=== PATIENT | female | born 1975 | race Two or more races ===

== ENCOUNTER 2025-06-28 17:11 | Emergency (ER) | payer MEDICAID, SELFPAY ==
[2025-06-28 17:24] VITALS: BP 127/84; PULSE 74; RESP 18; TEMP 37.3; O2SAT 96; BMI 33.5
--- NOTE | 2025-06-28 17:30 | PD.EDHAND ---
Upper Extremity Injury RME/HPI General Chief Complaint: Hand/Wrist Problems Stated Complaint: Left 5th digit swollen X 2 days Time Seen by Provider: 06/28/25 17:30 Arrival date/time: 06/28/25 17:11 50-year-old female with medical history significant hypothyroid without history of diabetes presents with concerns of left hand fifth digit erythema and pain. There are no other associated symptoms or aggravating factors no other modifying factors, patient denies taking medication before coming to ER today Limitations: no limitations Related Data Home Medications ?Medication ?Instructions ?Recorded ?Confirmed levothyroxine 200 mcg tablet 1 tab PO QAM 05/12/22 07/03/22 loratadine 10 mg tablet 1 tab PO QDAY 05/12/22 07/03/22 semaglutide 1 mg/dose (4 mg/3 mL) 1 mg subcut QWEEK 05/12/22 07/03/22 subcutaneous pen injector (Ozempic) albuterol sulfate 90 mcg/actuation 2 puff inhalation Q4H PRN 07/03/22 07/03/22 aerosol inhaler (ProAir HFA) Shortness Of Breath Or Wheezing clobetasol 0.05 % scalp solution See Rx Instructions .Route .COMPLEX 07/03/22 07/03/22 Previous Rx's ?Medication ?Instructions ?Recorded docusate sodium 100 mg capsule 100 mg PO BID #40 caps 07/05/22 hydrocodone 5 mg-acetaminophen 325 1 tab PO Q6H PRN pain (scale score 07/05/22 mg tablet 7-10) #20 tabs ibuprofen 600 mg tablet 600 mg PO Q8H PRN pain (scale 07/05/22 score 4-6) #15 tabs tramadol 50 mg tablet 50 mg PO Q6H PRN pain #20 tabs 01/29/23 ibuprofen 800 mg tablet 800 mg PO TID PRN pain #30 tabs 11/10/23 acetaminophen 500 mg capsule 500 mg PO Q6H PRN pain #30 caps 09/05/24 diphenhydramine HCl 25 mg capsule 25 mg PO TID PRN itching #14 caps 09/05/24 (Allergy Relief (diphenhydramine)) cephalexin 500 mg capsule 500 mg PO BID 7 days #14 caps 06/28/25 ibuprofen 600 mg tablet 600 mg PO Q6H #30 tabs 06/28/25 Allergies Allergy/AdvReac Type Severity Reaction Status Date / Time No Known Allergies Allergy Verified 06/28/25 17:16 Review of Systems Review of Systems Systems Reviewed: All systems reviewed, normal except as documented Constitutional Constitutional: Reports system reviewed and no additional complaints, except as documented, Denies fever(s) and Denies headache(s) Eyes Eyes: Reports system reviewed and no additional complaints, except as documented and Denies blurry vision ENT Ears, Nose, Mouth, and Throat: Reports system reviewed and no additional complaints, except as documented, Denies headache(s), Denies nasal congestion and Denies nasal discharge Cardiovascular Cardiovascular: Reports system reviewed and no additional complaints, except as documented, Denies chest pain and Denies dyspnea Respiratory Respiratory: Reports system reviewed and no additional complaints, except as documented, Denies chest congestion, Denies cough and Denies dyspnea Gastrointestinal Gastrointestinal: Reports system reviewed and no additional complaints, except as documented and Denies abdominal pain Integumentary/Breasts Skin/Breast: Reports system reviewed and no additional complaints, except as documented, Denies rash and Reports other (Mild erythema distal aspect of left pinky finger) Neurologic Neurologic: Reports system reviewed and no additional complaints, except as documented, Reports as per HPI and Denies headache(s) Past Medical History Past Medical History NEUROLOGIC: Negative Neurological Disorders or Seizures CARDIAC: Positive Cellulitis; Negative Cardiac Disorders, Myocardial Infarction, Cardiac Arrhythmia, Atrial Fibrillation, Angina, Heart Murmur, Coronary Artery Disease, Atherosclerotic Heart Disease, Peripheral Vascular Disease, Hypercholesterolemia, Aneurysm, Congestive Heart Failure, Congenital Heart Disease, Valvular Heart Disease, Rheumatic Fever, Cardiomyopathy, Edema, Pericarditis, Deep Vein Thrombosis, Hypertension, Hypotension or Varicose Veins RESPIRATORY: Positive Asthma; Negative Chronic Obstructive Pulmonary Disease (COPD) GASTROINTESTINAL: Positive Gastrointestinal Disorders (Diarhea for 6 months) and Obesity GENITOURINARY: Negative Genitourinary Disorders or Renal Disease REPRODUCTIVE: Negative Pelvic Inflammatory Disease MUSCULOSKELETAL: Negative Musculoskeletal Disorders ENDOCRINE: Positive Hypothyroidism; Negative Endocrine Disorders, Diabetes Mellitus Type 1, Diabetes Mellitus Type 2, Hypoglycemia, Montour's Syndrome, Partlow's Disease, Hyperthyroidism, Parathyroid Disease, Pituitary Disease, Systemic Lupus Erythematosus, Syndrome of Inappropriate Antidiuretic Hormone (SIADH), Adrenal Disease or Graves' Disease HEMATOLOGIC: Negative Blood Disorders or Sickle Cell Disease OTHER HISTORY: Negative Autoimmune Disease, Blood Transfusions, Blood Transfusion Reaction or Anesthesia Reactions Family History FAMILY HISTORY: Negative Family Neurologic Problems, Family Psychiatric Problems, Family Respiratory Disorders, Family Cardiac Disorders, Family Gastrointestinal Problems, Family Cancer, Family Surgery or Family Anesthesia Reaction Surgical History SURGICAL: Negative Pacemaker Social History SMOKING STATUS: Current every day smoker SUBSTANCE USE: does not use ED Exam General Limitations: Present no limitations General appearance: Present alert and in no apparent distress Head Head exam: Present atraumatic Eye Eye exam: Present normal appearance, PERRL and EOMI ENT ENT exam: Present normal exam, normal oropharynx and mucous membranes moist Neck Neck exam: Present normal inspection, full ROM and trachea midline Chest Chest inspection: Present normal inspection and symmetric chest wall rise Respiratory Respiratory exam: Present normal lung sounds bilaterally Cardiovascular Cardiovascular exam: Present regular rate, normal rhythm and normal heart sounds Abdominal Exam Abdominal exam: Present soft and normal bowel sounds Extremities Exam Extremities exam: Present full ROM, tenderness, normal capillary refill and joint swelling (Mild erythema, swelling distal aspect left fifth digit) Back Exam Back exam: Present normal inspection and full ROM Neurological Exam Neurological exam: Present alert, oriented X3 and CN II-XII intact Psychiatric Psychiatric exam: Present normal affect and normal mood Skin Skin exam: Present warm, dry, intact and normal color Course Quality Measures none Vital Signs Vital signs: Vital Signs Temperature 99.2 F 06/28/25 17:24 Pulse Rate 74 06/28/25 17:24 Respiratory Rate 18 06/28/25 17:24 Blood Pressure 127/84 06/28/25 17:24 Pulse Oximetry (%) 96 06/28/25 17:24 Oxygen Delivery Method Room Air 06/28/25 17:24 O2 saturation 96% on room air within normal limits Extremity Injury MDM Narrative MDM Narrative:: 50-year-old female with medical history significant hypothyroid without history of diabetes presents with concerns of left hand fifth digit erythema and pain. There are no other associated symptoms or aggravating factors no other modifying factors, patient denies taking medication before coming to ER today On exam patient has mild erythema distal aspect of the left fifth digit no significant swelling patient has full range of motion of all fingers Patient we discharged with a course of pain medication and antibiotics Patient discharged home in no distress to follow-up with primary care doctor in the next 24 to 48 hours and for any worsening symptoms to return to the ER immediately Patient data External records reviewed:: [facility] previous records Clinical information provided by:: patient Social determinants that could affect healthcare access:: none Patient has the following chronic illnesses:: None How is presenting disease/condition affected by chronic disease/condition?: no chronic disease Evaluation data The following diagnostics were reviewed and interpreted by me:: other (specify) Lab and/or radiology exams considered but not ordered:: Considered not indicated Interpretation Summary: N/A Medications / Prescriptions Medications or Prescriptions considered but not ordered:: Given Medication administrations:: Given Consultations Consultation(s) initiated? (list below): No Diagnosis Upper Extremity Injury Differential Diagnosis: other (Cellulitis, abscess) Most likely diagnosis given after review of the tests above:: Erythema finger Admission Indicated Admission indicated?: not indicated Admission Request Was there a request for admission?: No Disposition Plan Disposition Plan: Discharge Discharge Attestation Discharge Attestation: The patient and all family members were given an opportunity to ask questions and understood the discharge instructions. Discharge instructions specifically effects, indications for sooner follow up or return to the emergency department, and the expected course of current diagnosis. Patient condition: Stable Discharge Plan Plan Patient Disposition: HOME (Self Care) Discharge Disposition comment: Stable Prescriptions/Referrals Prescriptions/Med Rec: New cephalexin 500 mg capsule 500 mg PO BID 7 Days Qty: 14 0RF ibuprofen 600 mg tablet 600 mg PO Q6H Qty: 30 0RF No Action levothyroxine 200 mcg tablet 1 tab PO QAM Patient Comments: take 1 tablet by mouth IN THE MORNING ON AN EMPTY STOMACH ONCE DAILY 30 Rx Instructions: TAKE 1 TABLET BY MOUTH EVERY MORNING ON AN EMPTY STOMACH Ozempic 1 mg/dose (4 mg/3 mL) pen injector 1 mg SUBCUT QWEEK Patient Comments: inject 1 milligram subcutaneously every week Rx Instructions: 1 MG ONCE WEEK loratadine 10 mg tablet 1 tab PO QDAY Patient Comments: take 1 tablet by mouth once daily clobetasol 0.05 % solution See Rx Instructions .ROUTE .COMPLEX Patient Comments: apply topically to scalp every evening for 2 WEEKS ON 2 WEEKS OFF if needed AVOID FACE AND GROIN Rx Instructions: APPLY TOPICALLY TO SCALP EVERY EVENING FOR 2 WEEKS ON AND 2 WEEKS OFF IF NEEDED. AVOID FACE AND GROIN. albuterol sulfate [ProAir HFA] 90 mcg/actuation HFA aerosol inhaler 2 puff inhalation Q4H PRN (Reason: Shortness Of Breath Or Wheezing) docusate sodium 100 mg Capsule 100 mg PO BID Qty: 40 0RF hydrocodone-acetaminophen 5-325 mg tablet 1 tab PO Q6H MDD 4 PRN (Reason: pain (scale score 7-10)) Qty: 20 0RF ibuprofen 600 mg tablet 600 mg PO Q8H PRN (Reason: pain (scale score 4-6)) Qty: 15 0RF tramadol 50 mg tablet 50 mg PO Q6H PRN (Reason: pain) Qty: 20 0RF diphenhydramine HCl [Allergy Relief(diphenhydramin)] 25 mg capsule 25 mg PO TID PRN (Reason: itching) Qty: 14 0RF acetaminophen 500 mg capsule 500 mg PO Q6H PRN (Reason: pain) Qty: 30 0RF ibuprofen 800 mg tablet 800 mg PO TID PRN (Reason: pain) Qty: 30 0RF Problem List Clinical Impression: Hand pain, left, Erythema of finger Patient/Caregiver Discharge Instructions Education Materials: ED Erythema Additional Instructions: Please follow up with your primary care doctor in the next 24-48hrs for any worsening symptoms return here immediately Print Language: Welsh Stand Alone Forms: Jeannie Award Info., Patient Portal Info Letter PA/CANDY ROLLING MACHINE OPERATOR Supervising Physician PA/CANDY ROLLING MACHINE OPERATOR Supervising Physician: Dr. peguero
== END 2025-06-28 17:41 | disposition home or self-care (01) ==
LOC: SERX 17:44
PROVIDERS: Emergency Provider Family Medicine
DX: L53.8 Other specified erythematous conditions (principal); M79.642 Pain in left hand
CPT/HCPCS: 99281

== ENCOUNTER 2025-07-23 08:19 | Emergency (ER) | payer MEDICAID, SELFPAY ==
[2025-07-23 08:20] VITALS: BMI 31.8
[2025-07-23 08:30] VITALS: BP 118/76; PULSE 63; RESP 18; TEMP 36.5; O2SAT 97
--- NOTE | 2025-07-23 08:46 | PD.EDHAND ---
Upper Extremity Injury RME/HPI General Chief Complaint: Hand/Wrist Problems Stated Complaint: LEFT 4/5 METATARSAL SWELLING/PAIN X2 WK Time Seen by Provider: 07/23/25 08:26 Source: patient Arrival date/time: 07/23/25 08:19 50-year-old female with a history of hypothyroidism presents to the emergency room with a chief complaint of left hand tenderness and pain x 2 weeks Mode of arrival: ambulatory Limitations: no limitations Related Data Home Medications ?Medication ?Instructions ?Recorded ?Confirmed levothyroxine 200 mcg tablet 1 tab PO QAM 05/12/22 07/03/22 loratadine 10 mg tablet 1 tab PO QDAY 05/12/22 07/03/22 semaglutide 1 mg/dose (4 mg/3 mL) 1 mg subcut QWEEK 05/12/22 07/03/22 subcutaneous pen injector (Ozempic) albuterol sulfate 90 mcg/actuation 2 puff inhalation Q4H PRN 07/03/22 07/03/22 aerosol inhaler (ProAir HFA) Shortness Of Breath Or Wheezing clobetasol 0.05 % scalp solution See Rx Instructions .Route .COMPLEX 07/03/22 07/03/22 Previous Rx's ?Medication ?Instructions ?Recorded docusate sodium 100 mg capsule 100 mg PO BID #40 caps 07/05/22 hydrocodone 5 mg-acetaminophen 325 1 tab PO Q6H PRN pain (scale score 07/05/22 mg tablet 7-10) #20 tabs ibuprofen 600 mg tablet 600 mg PO Q8H PRN pain (scale 07/05/22 score 4-6) #15 tabs tramadol 50 mg tablet 50 mg PO Q6H PRN pain #20 tabs 01/29/23 ibuprofen 800 mg tablet 800 mg PO TID PRN pain #30 tabs 11/10/23 acetaminophen 500 mg capsule 500 mg PO Q6H PRN pain #30 caps 09/05/24 diphenhydramine HCl 25 mg capsule 25 mg PO TID PRN itching #14 caps 09/05/24 (Allergy Relief (diphenhydramine)) ibuprofen 600 mg tablet 600 mg PO Q6H #30 tabs 06/28/25 ibuprofen 600 mg tablet 600 mg PO Q8H PRN fever or pain 07/23/25 #20 tabs Allergies Allergy/AdvReac Type Severity Reaction Status Date / Time No Known Allergies Allergy Verified 07/23/25 08:22 Review of Systems Review of Systems Systems Reviewed: All systems reviewed, normal except as documented Constitutional Constitutional: Reports system reviewed and no additional complaints, except as documented, Denies fatigue, Denies fever(s), Denies headache(s) and Denies weakness Eyes Eyes: Reports system reviewed and no additional complaints, except as documented, Denies blurry vision and Denies change in vision ENT Ears, Nose, Mouth, and Throat: Reports system reviewed and no additional complaints, except as documented, Denies otalgia, Denies headache(s), Denies nasal congestion, Denies throat swelling and Denies vertigo Cardiovascular Cardiovascular: Reports system reviewed and no additional complaints, except as documented, Denies chest pain, Denies dyspnea and Denies dyspnea on exertion Respiratory Respiratory: Reports system reviewed and no additional complaints, except as documented, Denies chest congestion, Denies cough, Denies dyspnea, Denies dyspnea on exertion and Denies wheezing Gastrointestinal Gastrointestinal: Reports system reviewed and no additional complaints, except as documented, Denies abdominal pain, Denies cramping, Denies nausea and Denies vomiting Genitourinary Genitourinary: Reports system reviewed and no additional complaints, except as documented Musculoskeletal Musculoskeletal: Reports system reviewed and no additional complaints, except as documented, Reports arthralgias, Denies back pain, Denies joint swelling, Denies limited range of motion and Denies numbness Integumentary/Breasts Skin/Breast: Reports system reviewed and no additional complaints, except as documented, Denies erythema, Denies pruritus, Denies rash, Reports skin pain and Denies wounds Neurologic Neurologic: Reports system reviewed and no additional complaints, except as documented, Denies confusion, Denies headache(s), Denies lack of coordination, Denies numbness, Denies vertigo and Denies weakness Psychiatric Psychiatric: Reports system reviewed and no additional complaints, except as documented, Denies anxiety, Denies confusion, Denies depression, Denies paranoia, Denies suicidal ideation and Denies tactile hallucinations Endocrine Endocrine: Reports system reviewed and no additional complaints, except as documented and Denies fatigue Hematologic/Lymphatic Hematologic/Lymphatic: Reports system reviewed and no additional complaints, except as documented and Denies lymphadenopathy Allergic/Immunologic Allergic/Immunologic: Reports system reviewed and no additional complaints, except as documented, Denies throat swelling, Denies urticaria and Denies wheezing ED Exam General Limitations: Present no limitations General appearance: Present alert and in no apparent distress Head Head exam: Present atraumatic Eye Eye exam: Present normal appearance, PERRL and EOMI ENT ENT exam: Present normal exam, normal oropharynx and mucous membranes moist Neck Neck exam: Present normal inspection, full ROM and trachea midline Chest Chest inspection: Present normal inspection and symmetric chest wall rise Respiratory Respiratory exam: Present normal lung sounds bilaterally Cardiovascular Cardiovascular exam: Present regular rate, normal rhythm and normal heart sounds Abdominal Exam Abdominal exam: Present soft and normal bowel sounds Extremities Exam Extremities exam: Present normal inspection and full ROM Expanded Upper Extremity Exam Shoulder exam: Present normal inspection Arm exam: Present normal inspection Elbow exam: Present normal inspection Forearm/Wrist exam: Present full ROM, tenderness, swelling and pain with axial thumb loading; Absent deformity, crepitus, dislocation, erythema or tenderness over anatomical snuff box Back Exam Back exam: Present normal inspection and full ROM Neurological Exam Neurological exam: Present alert, oriented X3 and CN II-XII intact Psychiatric Psychiatric exam: Present normal affect and normal mood Skin Skin exam: Present warm, dry, intact and normal color Course Quality Measures none Orders Category Date Time Status david wrap [Splint / Immobilizer] STAT Care 07/23/25 08:43 Active Vital Signs Vital signs: Vital Signs Temperature 97.7 F 07/23/25 08:30 Pulse Rate 63 07/23/25 08:30 Respiratory Rate 18 07/23/25 08:30 Blood Pressure 118/76 07/23/25 08:30 Pulse Oximetry (%) 97 07/23/25 08:30 Oxygen Delivery Method Room Air 07/23/25 08:30 Extremity Injury MDM Narrative MDM Narrative:: 50-year-old female with a history of hypothyroidism presents to the emergency room with a chief complaint of left hand tenderness and pain x 2 weeks Patient is hemodynamically stable and in no apparent distress. Patient is afebrile nontachycardic nontachypneic Physical examination shows tenderness and pain to the patient's left wrist whenever she has movement to her left pinky finger. There is no erythema there is no warmth to the touch. Patient states she was seen here 2 weeks ago and was given antibiotics which significantly improved her symptoms but now whenever she moves her left pinky she is having pain that radiates down her left wrist. The findings are consistent with tendinitis. Patient was discharged with NSAIDs and an David wrap was placed and was educated to follow-up with her primary care provider for further management. Patient denies any trauma to the area Patient was discharged and educated to follow-up with primary care provider in the next 24 to 48 hours and return to the emergency room for any evidence of worsening signs or symptoms Patient data External records reviewed:: [facility] previous records Clinical information provided by:: patient Social determinants that could affect healthcare access:: none Patient has the following chronic illnesses:: No chronic illness How is presenting disease/condition affected by chronic disease/condition?: no chronic disease Evaluation data The following diagnostics were reviewed and interpreted by me:: lab results and radiology exam(s) Lab and/or radiology exams considered but not ordered:: Labs and radiology exams considered and ordered Interpretation Summary: N/A Medications / Prescriptions Medications or Prescriptions considered but not ordered:: No medication given Medication administrations:: No medication given Consultations Consultation(s) initiated? (list below): No Diagnosis Upper Extremity Injury Differential Diagnosis: sprain and strain of wrist, finger sprain and other Most likely diagnosis given after review of the tests above:: Tendinitis Admission Indicated Admission indicated?: not indicated Admission Request Was there a request for admission?: No Disposition Plan Disposition Plan: Discharge Discharge Attestation Discharge Attestation: The patient and all family members were given an opportunity to ask questions and understood the discharge instructions. Discharge instructions specifically effects, indications for sooner follow up or return to the emergency department, and the expected course of current diagnosis. Patient condition: Stable Discharge Plan Plan Patient Disposition: HOME (Self Care) Discharge Disposition comment: Stable Prescriptions/Referrals Prescriptions/Med Rec: New ibuprofen 600 mg tablet 600 mg PO Q8H PRN (Reason: fever or pain) Qty: 20 0RF No Action levothyroxine 200 mcg tablet 1 tab PO QAM Patient Comments: take 1 tablet by mouth IN THE MORNING ON AN EMPTY STOMACH ONCE DAILY 30 Rx Instructions: TAKE 1 TABLET BY MOUTH EVERY MORNING ON AN EMPTY STOMACH Ozempic 1 mg/dose (4 mg/3 mL) pen injector 1 mg SUBCUT QWEEK Patient Comments: inject 1 milligram subcutaneously every week Rx Instructions: 1 MG ONCE WEEK loratadine 10 mg tablet 1 tab PO QDAY Patient Comments: take 1 tablet by mouth once daily clobetasol 0.05 % solution See Rx Instructions .ROUTE .COMPLEX Patient Comments: apply topically to scalp every evening for 2 WEEKS ON 2 WEEKS OFF if needed AVOID FACE AND GROIN Rx Instructions: APPLY TOPICALLY TO SCALP EVERY EVENING FOR 2 WEEKS ON AND 2 WEEKS OFF IF NEEDED. AVOID FACE AND GROIN. albuterol sulfate [ProAir HFA] 90 mcg/actuation HFA aerosol inhaler 2 puff inhalation Q4H PRN (Reason: Shortness Of Breath Or Wheezing) docusate sodium 100 mg Capsule 100 mg PO BID Qty: 40 0RF hydrocodone-acetaminophen 5-325 mg tablet 1 tab PO Q6H MDD 4 PRN (Reason: pain (scale score 7-10)) Qty: 20 0RF ibuprofen 600 mg tablet 600 mg PO Q8H PRN (Reason: pain (scale score 4-6)) Qty: 15 0RF tramadol 50 mg tablet 50 mg PO Q6H PRN (Reason: pain) Qty: 20 0RF diphenhydramine HCl [Allergy Relief(diphenhydramin)] 25 mg capsule 25 mg PO TID PRN (Reason: itching) Qty: 14 0RF acetaminophen 500 mg capsule 500 mg PO Q6H PRN (Reason: pain) Qty: 30 0RF ibuprofen 600 mg tablet 600 mg PO Q6H Qty: 30 0RF ibuprofen 800 mg tablet 800 mg PO TID PRN (Reason: pain) Qty: 30 0RF Problem List Clinical Impression: Tendinitis Patient/Caregiver Discharge Instructions Additional Instructions: Please follow-up with your primary care provider in the next 24 to 48 hours If findings are consistent with tendinitis. Please follow-up with your primary care provider for further management Please keep your David wrap in place as this will help relieve your symptoms. Please rest ice and elevate the extremity. For any evidence of worsening signs or symptoms return to the emergency room immediately Print Language: Anguillan Stand Alone Forms: Jeannie Award Info., Work/School Release, Patient Portal Info Letter PA/SHIPS EQUIPMENT ENGINEER Supervising Physician PA/SHIPS EQUIPMENT ENGINEER Supervising Physician: Dr. Mendez
[2025-07-23] MEDS: KETOROLAC INJ 60 MG/2 ML VIAL 30 MG IM (09:29)
[2025-07-23 09:51] VITALS: PULSE 70; RESP 18; TEMP 36.6; O2SAT 98
== END 2025-07-23 09:52 | disposition home or self-care (01) ==
LOC: SERX 09:07
PROVIDERS: Emergency Provider Emergency Medicine; PCP Nurse Practitioner Women's Health
DX: M77.8 Other enthesopathies, not elsewhere classified (principal); E03.9 Hypothyroidism, unspecified
CPT/HCPCS: 96372; 99284; J1885